=== PATIENT | male | born 1950 | race Caucasian/White ===

== ENCOUNTER 2020-08-09 07:46 | Emergency (ER) | payer MEDICARE, BC ==
[2020-08-09] MEDS ORDERED: Aspirin 81 MG Tab.Chew PO ONE (08:34)
--- NOTE | 2020-08-09 08:38 | EDM.PDOC ---
<OfficerAdy - Last Filed: 08/09/20 13:46> ED HPI GENERAL MEDICAL PROBLEM - General Chief Complaint: Chest Pain Stated Complaint: CHEST PAINS Time Seen by Provider: 08/09/20 08:24 Source of Information: Reports: Patient, RN Notes Reviewed History Limitations: Reports: No Limitations - History of Present Illness INITIAL COMMENTS - FREE TEXT/NARRATIVE: 69-year-old gentleman presents emergency department a complaint of chest pain chest discomfort, he states it came on yesterday it only occurs when he exerts himself if he stops he will have relief of his pain he describes it kind of is a burning sensation in the center of his chest no nausea vomiting no shortness of breath no diaphoresis. He does have an extensive cardiac history with stenting x2 last was about 8 years ago has not had a stress test for several years. Chest pain-free at this time. Stress test March 2019 - exercise portion nuclear med showed no ischemic or reversible areas chest Pain Score (Numeric/FACES): 3 - Related Data Allergies Allergy/AdvReac Type Severity Reaction Status Date / Time No Known Allergies Allergy Verified 08/09/20 08:02 Home Meds: Home Meds Aspirin [Halfprin] 81 mg PO DAILY 04/04/14 [History] Metoprolol Succinate [Toprol XL] 12.5 mg PO BID 04/04/14 [History] Multivitamins/Iron/Folic Acid [Cerovite Advanced Formula] 1 tab PO DAILY 04/04/14 [History] Niacin [Niaspan] 500 mg PO BEDTIME 04/04/14 [History] Nitroglycerin [Nitrostat] 0.4 mg SL ASDIRECTED PRN 04/04/14 [History] Cyclobenzaprine HCl 10 mg PO BEDTIME 03/26/19 [History] Naproxen 500 mg PO BID 03/26/19 [History] atorvaSTATin Calcium [Atorvastatin Calcium] 40 mg PO DAILY 03/26/19 [History] Cholecalciferol (Vitamin D3) [Vitamin D] 5,000 units PO DAILY 08/09/20 [History] Vitamin B Complex 1 cap PO DAILY 08/09/20 [History] Past Medical History Cardiovascular History: Reports: CAD, High Cholesterol, Hypertension, Stents Neurological History: Reports: Headaches, Chronic Social & Family History - Tobacco Use Tobacco Use Status *Q: Former Tobacco User Used Tobacco, but Quit: Yes Month/Year Tobacco Last Used: 03/1979 - Caffeine Use Caffeine Use: Reports: None - Recreational Drug Use Recreational Drug Use: No ED ROS GENERAL - Review of Systems Review Of Systems: See Below Constitutional: Reports: No Symptoms HEENT: Reports: No Symptoms Respiratory: Reports: No Symptoms Cardiovascular: Reports: Chest Pain. Denies: Dyspnea on Exertion GI/Abdominal: Reports: No Symptoms ED EXAM, GENERAL - Physical Exam Exam: See Below Exam Limited By: No Limitations General Appearance: Alert, WD/WN, No Apparent Distress Respiratory/Chest: No Respiratory Distress, Lungs Clear, Normal Breath Sounds, No Accessory Muscle Use, Chest Non-Tender Cardiovascular: Regular Rate, Rhythm, No Murmur GI/Abdominal: Soft, Non-Tender Extremities: No Pedal Edema #1 Interpretation EKG Date: 08/09/20 Time: 08:27 Rhythm: NSR [place]: Normal P-Wave: Present QRS: Normal ST-T: Normal QT: Normal Comparison: No Change #2 Interpretation EKG Date: 08/09/20 Time: 13:01 Rhythm: NSR Rate (Beats/Min): 56 [place]: Normal P-Wave: Present QRS: Normal ST-T: Normal QT: Normal Comparison: No Change Course - Re-Assessments/Exams Free Text/Narrative Re-Assessment/Exam: 08/09/20 13:46 Initially called and spoke with Dr. Cramer emergency room physician [facility] [phone] I would gladly accept the patient unfortunately they had no beds he would be #3 on the waiting list, call [facility] no beds at [phone] called [facility] no beds at 950 called [facility] no beds at [phone].. Called [facility] spoke with 1 call at [phone] he is currently #2 on the waiting list thus far he has been given a heparin bolus heparin drip Brilinta full dose aspirin he is remained chest pain-free no changes in EKGs will plan to repeat these in 6 hours Departure - Departure Disposition: DC/Tfer to Other 70 Clinical Impression: Non-STEMI (non-ST elevated myocardial infarction) Referrals: Jade Calderón PA-C [Primary Care Provider] - Forms: ED Department Discharge Care Plan Goals: Patient is to be transferred to [facility] for further evaluation by interventional cardiology. Accepted for transfer at 7:[address] Novoa of the emergency department. Sepsis Event Note (ED) - Evaluation Sepsis Screening Result: No Definite Risk <Cedrick Bergeron - Last Filed: 08/10/20 08:50> Course - Vital Signs Last Recorded V/S: Last Vital Signs Temp 98.2 F 08/09/20 16:03 Pulse 66 08/09/20 22:56 Resp 17 08/10/20 06:00 BP 120/72 08/10/20 06:00 Pulse Ox 98 08/10/20 06:00 - Orders/Labs/Meds Orders: Active Orders 24 hr Category Date Time Status Peripheral IV Insertion Adult [OM.PC] Stat Oth 08/09/20 09:29 Ordered EKG 12 Lead [EK] Stat Ther 08/09/20 08:35 Stop Req EKG 12 Lead [EK] Stat Ther 08/09/20 13:00 Ordered EKG 12 Lead [EK] Stat Ther 08/09/20 19:00 Ordered Labs: Laboratory Tests 08/09/20 08/09/20 08/09/20 Range/Units 08:43 08:43 09:57 WBC 4.8 (4.5-11.0) K/uL RBC 4.83 (4.30-5.90) M/uL Hgb 15.3 H (12.0-15.0) g/dL Hct 43.8 (40.0-54.0) % MCV 91 (80-98) fL MCH 32 H (27-31) pg MCHC 35 (32-36) % Plt Count 156 (150-400) K/uL Neut % (Auto) 64.3 (36-66) % Lymph % (Auto) 22.1 L (24-44) % [place] % (Auto) 11.1 H (2-6) % Eos % (Auto) 1.9 L (2-4) % Baso % (Auto) 0.6 (0-1) % PT 11.2 (9.5-12.0) sec INR 1.03 (0.80-1.20) APTT (27.0-36.0) sec Sodium 144 (140-148) mmol/L Potassium 4.7 (3.6-5.2) mmol/L Chloride 106 (100-108) mmol/L Carbon Dioxide 28 (21-32) mmol/L Anion Gap 9.8 (5.0-14.0) mmol/L BUN 16 (7-18) mg/dL Creatinine 0.9 (0.8-1.3) mg/dL Est Cr Clr Drug Dosing 65.49 mL/min Estimated GFR (MDRD) > 60 (>60) Glucose 93 (74-106) mg/dL Calcium 8.2 L (8.5-10.1) mg/dL Total Bilirubin 0.6 (0.2-1.0) mg/dL AST 28 (15-37) U/L ALT 33 (12-78) U/L Alkaline Phosphatase 73 (46-116) U/L Troponin I 0.598 H* (0.000-0.056) ng/mL Total Protein 6.3 L (6.4-8.2) g/dL Albumin 3.5 (3.4-5.0) g/dL Globulin 2.8 (2.3-3.5) g/dL Albumin/Globulin Ratio 1.2 (1.2-2.2) SARS CoV-2 RNA Rapid TRAVON 08/09/20 08/09/20 08/09/20 Range/Units 09:58 10:41 12:57 WBC (4.5-11.0) K/uL RBC (4.30-5.90) M/uL Hgb (12.0-15.0) g/dL Hct (40.0-54.0) % MCV (80-98) fL MCH (27-31) pg MCHC (32-36) % Plt Count (150-400) K/uL Neut % (Auto) (36-66) % Lymph % (Auto) (24-44) % [place] % (Auto) (2-6) % Eos % (Auto) (2-4) % Baso % (Auto) (0-1) % PT (9.5-12.0) sec INR (0.80-1.20) APTT 27.2 (27.0-36.0) sec Sodium (140-148) mmol/L Potassium (3.6-5.2) mmol/L Chloride (100-108) mmol/L Carbon Dioxide (21-32) mmol/L Anion Gap (5.0-14.0) mmol/L BUN (7-18) mg/dL Creatinine (0.8-1.3) mg/dL Est Cr Clr Drug Dosing mL/min Estimated GFR (MDRD) (>60) Glucose (74-106) mg/dL Calcium (8.5-10.1) mg/dL Total Bilirubin (0.2-1.0) mg/dL AST (15-37) U/L ALT (12-78) U/L Alkaline Phosphatase (46-116) U/L Troponin I 0.591 H* (0.000-0.056) ng/mL Total Protein (6.4-8.2) g/dL Albumin (3.4-5.0) g/dL Globulin (2.3-3.5) g/dL Albumin/Globulin Ratio (1.2-2.2) SARS CoV-2 RNA Rapid TRAVON Negative 08/09/20 08/09/20 08/09/20 Range/Units 16:15 16:15 18:58 WBC (4.5-11.0) K/uL RBC (4.30-5.90) M/uL Hgb (12.0-15.0) g/dL Hct (40.0-54.0) % MCV (80-98) fL MCH (27-31) pg MCHC (32-36) % Plt Count (150-400) K/uL Neut % (Auto) (36-66) % Lymph % (Auto) (24-44) % [place] % (Auto) (2-6) % Eos % (Auto) (2-4) % Baso % (Auto) (0-1) % PT 11.3 (9.5-12.0) sec INR 1.04 (0.80-1.20) APTT 54.4 H (27.0-36.0) sec Sodium (140-148) mmol/L Potassium (3.6-5.2) mmol/L Chloride (100-108) mmol/L Carbon Dioxide (21-32) mmol/L Anion Gap (5.0-14.0) mmol/L BUN (7-18) mg/dL Creatinine (0.8-1.3) mg/dL Est Cr Clr Drug Dosing mL/min Estimated GFR (MDRD) (>60) Glucose (74-106) mg/dL Calcium (8.5-10.1) mg/dL Total Bilirubin (0.2-1.0) mg/dL AST (15-37) U/L ALT (12-78) U/L Alkaline Phosphatase (46-116) U/L Troponin I 0.516 H* (0.000-0.056) ng/mL Total Protein (6.4-8.2) g/dL Albumin (3.4-5.0) g/dL Globulin (2.3-3.5) g/dL Albumin/Globulin Ratio (1.2-2.2) SARS CoV-2 RNA Rapid TRAVON 08/09/20 08/09/20 08/10/20 Range/Units 22:04 22:04 03:55 WBC (4.5-11.0) K/uL RBC (4.30-5.90) M/uL Hgb (12.0-15.0) g/dL Hct (40.0-54.0) % MCV (80-98) fL MCH (27-31) pg MCHC (32-36) % Plt Count (150-400) K/uL Neut % (Auto) (36-66) % Lymph % (Auto) (24-44) % [place] % (Auto) (2-6) % Eos % (Auto) (2-4) % Baso % (Auto) (0-1) % PT 11.4 (9.5-12.0) sec INR 1.05 (0.80-1.20) APTT 46.7 H 71.8 H (27.0-36.0) sec Sodium (140-148) mmol/L Potassium (3.6-5.2) mmol/L Chloride (100-108) mmol/L Carbon Dioxide (21-32) mmol/L Anion Gap (5.0-14.0) mmol/L BUN (7-18) mg/dL Creatinine (0.8-1.3) mg/dL Est Cr Clr Drug Dosing mL/min Estimated GFR (MDRD) (>60) Glucose (74-106) mg/dL Calcium (8.5-10.1) mg/dL Total Bilirubin (0.2-1.0) mg/dL AST (15-37) U/L ALT (12-78) U/L Alkaline Phosphatase (46-116) U/L Troponin I (0.000-0.056) ng/mL Total Protein (6.4-8.2) g/dL Albumin (3.4-5.0) g/dL Globulin (2.3-3.5) g/dL Albumin/Globulin Ratio (1.2-2.2) SARS CoV-2 RNA Rapid TRAVON Meds: Medications Discontinued Medications Generic Name Dose Route Start Last Admin Trade Name Freq PRN Reason Stop Dose Admin Aspirin 324 mg 08/09/20 08:34 08/09/20 08:39 Aspirin 81 Mg Tab.Chew PO 08/09/20 08:35 Not Given ONETIME ONE Heparin Sodium (Porcine) 4,000 units 08/09/20 09:29 08/09/20 09:51 Heparin Sodium 5,000 Units/Ml Vial IVPUSH 08/09/20 09:30 4,000 units ONETIME ONE Administration Heparin Sodium (Porcine) 1,000 units 08/09/20 22:50 08/09/20 22:58 Heparin Sodium 5,000 Units/Ml Vial IVPUSH 08/09/20 22:51 1,000 units .BOLUS ONE Administration Heparin Sodium/Dextrose 25,000 units in 500 mls @ 18.507 mls/hr 08/09/20 09:30 08/10/20 04:19 Heparin 25,000 Units In D5w 500 Ml IV 12 units/kg/hr TITRATE JEET 18.507 mls/hr Titration Protocol 12 UNITS/KG/HR Heparin Sodium/Dextrose 25,000 units in 500 mls @ 18.507 mls/hr 08/10/20 08:15 08/10/20 08:15 Heparin 25,000 Units In D5w 500 Ml IV 12 units/kg/hr TITRATE JEET 18.507 mls/hr Administration Protocol 12 UNITS/KG/HR Nitroglycerin 0.4 mg 08/09/20 09:29 Nitroglycerin 0.4 Mg Tab.Sl SL 08/10/20 09:30 Q5M PRN Chest Pain Sodium Chloride 10 ml 08/09/20 09:29 08/09/20 09:52 Sodium Chloride 0.9% 10 Ml Syringe FLUSH 10 ml ASDIRECTED PRN Administration Keep Vein Open Ticagrelor 180 mg 08/09/20 09:29 08/09/20 09:43 Ticagrelor 90 Mg Tab PO 08/09/20 09:30 180 mg ONETIME ONE Administration Departure - Departure Time of Disposition: 08:40 Reason for Transfer *Q: Primary PCI Indicated Sepsis Event Note (ED) - Focused Exam Vital Signs: Vital Signs Pulse Resp BP Pulse Ox 08/10/20 06:00 17 120/72 98 08/10/20 05:00 18 129/73 95 08/10/20 04:00 16 116/72 96 08/10/20 03:00 17 114/73 96 08/10/20 02:00 19 108/64 96 08/10/20 01:00 16 114/56 L 96 08/09/20 22:56 66 21 H 111/67 96 08/09/20 21:07 68 21 H 112/59 L 94 L
--- NOTE | 2020-08-09 09:06 | CR ---
CHEST: 2 view CLINICAL HISTORY:Chest pain COMPARISON:2014 FINDINGS: The heart size, pulmonary vascularity and hilar structures are normal. No infiltrate effusion or pneumothorax is seen. IMPRESSION: No acute cardiopulmonary process.
[2020-08-09] MEDS ORDERED: Sodium Chloride 0.9% 10 ML Syringe FLUSH PRN (09:29)
[2020-08-09] MEDS ORDERED: Heparin Sodium 5,000 Units/ML Vial IVPUSH ONE ×2 (09:29→22:50)
[2020-08-09] MEDS ORDERED: Ticagrelor 90 MG Tab PO ONE (09:29)
[2020-08-09] MEDS ORDERED: Nitroglycerin 0.4 MG Tab.SL SL PRN (09:29)
[2020-08-09] MEDS ORDERED: Heparin Sodium/D5W 25,000 UNITS/500 ML BAG IV SCH (09:30)
[2020-08-09 22:57] VITALS: PULSE 66
[2020-08-10 06:04] VITALS: BP 120/72
[2020-08-10] MEDS ORDERED: Heparin Sodium/D5W 25,000 UNITS/500 ML BAG IV SCH (08:15)
== END 2020-08-10 08:25 | disposition other institution (70) ==
LOC: JP.ED 07:46
DX: I21.4 Non-ST elevation (NSTEMI) myocardial infarction (principal); I25.10 Atherosclerotic heart disease of native coronary artery without angina pectoris; E78.00 Pure hypercholesterolemia, unspecified; I10 Essential (primary) hypertension; Z95.5 Presence of coronary angioplasty implant and graft; Z87.891 Personal history of nicotine dependence; Z79.82 Long term (current) use of aspirin; Z79.899 Other long term (current) drug therapy; Z20.822 Contact with and (suspected) exposure to COVID-19
CPT/HCPCS: 36415; 71046; 80053; 84484; 85025; 85610; 85730; 93005; 96365; 96366; 99285; A9270; J1644; U0002

== ENCOUNTER 2021-01-04 05:51 | Emergency (ER) | payer MEDICARE, BC ==
[2021-01-04] MEDS ORDERED: Morphine 2 MG/ML SYRINGE IVPUSH PRN (06:21)
[2021-01-04] MEDS ORDERED: Aspirin 81 MG Tab.Chew PO ONE (06:21)
[2021-01-04] MEDS ORDERED: Nitroglycerin 0.4 MG Tab.SL SL PRN (06:21)
[2021-01-04] MEDS ORDERED: Morphine 2 MG/ML SYRINGE IM ONE (06:26)
--- NOTE | 2021-01-04 07:25 | EDM.PDOC ---
ED HPI GENERAL MEDICAL PROBLEM - General Chief Complaint: Chest Pain Stated Complaint: CHEST PRESSURE Time Seen by Provider: 01/04/21 06:17 Source of Information: Reports: Patient, Old Records History Limitations: Reports: No Limitations - History of Present Illness INITIAL COMMENTS - FREE TEXT/NARRATIVE: 70 yo male with a pHx of CAD presents with mild L chest pain/pressure for the past 2 d that seems worse in the AM. No associated sx's like nausea, SOB, or diaphoresis. Has NTG, but did not take any. 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 Is here with his . Says "he just doesn't feel right". Onset: Gradual Onset Date: 01/02/21 Duration: Day(s): (2), Waxing/Waning Location: Reports: Chest, Generalized Quality: Reports: Pressure Severity: Mild Improves with: Reports: Other (? 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 Denies: Nitroglycerin chest Pain Score (Numeric/FACES): 2 - Related Data Allergies Allergy/AdvReac Type Severity Reaction Status Date / Time No Known Allergies Allergy Verified 01/04/21 05:59 Home Meds: Home Meds Aspirin [Halfprin] 81 mg PO DAILY 04/04/14 [History] Metoprolol Succinate [Toprol XL] 12.5 mg PO BID 04/04/14 [History] Multivitamins/Iron/Folic Acid [Cerovite Advanced Formula] 1 tab PO DAILY 04/04/14 [History] Nitroglycerin [Nitrostat] 0.4 mg SL ASDIRECTED PRN 04/04/14 [History] Cyclobenzaprine HCl 10 mg PO BEDTIME 03/26/19 [History] atorvaSTATin Calcium [Atorvastatin Calcium] 40 mg PO DAILY 03/26/19 [History] Cholecalciferol (Vitamin D3) [Vitamin D] 5,000 units PO DAILY 08/09/20 [History] Vitamin B Complex 1 cap PO DAILY 08/09/20 [History] Ticagrelor [Brilinta] 90 mg PO BID 01/04/21 [History] Past Medical History HEENT History: Reports: Hard of Hearing, Other (See Below) Other HEENT History: bilateral hearing aids Cardiovascular History: Reports: CAD, High Cholesterol, Hypertension, Stents Genitourinary History: Reports: Renal Calculus Neurological History: Reports: Headaches, Chronic Dermatologic History: Reports: Other (See Below) Other Dermatologic History: pigment loss bilateral arms - Infectious Disease History Infectious Disease History: Reports: Chicken Pox, Novel Coronavirus - Past Surgical History Cardiovascular Surgical History: Reports: Coronary Artery Stent Male Surgical History: Reports: Kidney Stone Extraction Social & Family History - Tobacco Use Tobacco Use Status *Q: Never Tobacco User - Caffeine Use Caffeine Use: Reports: None ED ROS GENERAL - Review of Systems Review Of Systems: See Below Constitutional: Reports: Other (" just doesn't feel right") HEENT: Reports: No Symptoms Respiratory: Reports: No Symptoms. Denies: Shortness of Breath, Pleuritic Chest Pain, Cough Cardiovascular: Reports: Chest Pain. Denies: Dyspnea on Exertion GI/Abdominal: Reports: No Symptoms. Denies: Nausea : Reports: No Symptoms Musculoskeletal: Reports: No Symptoms Skin: Reports: No Symptoms Neurological: Reports: No Symptoms ED EXAM, GENERAL - Physical Exam Exam: See Below Exam Limited By: No Limitations General Appearance: Alert, WD/WN, No Apparent Distress Eye Exam: Bilateral Eye: Normal Inspection Ears: Normal External Exam, Normal Canal, Hearing Grossly Normal, Normal TMs Ear Exam: Bilateral Ear: Auricle Normal, Canal Normal Nose: Normal Inspection, No Blood Throat/Mouth: Normal Inspection, Normal Lips, Normal Oropharynx, Normal Voice, No Airway Compromise Head: Atraumatic, Normocephalic Neck: Normal Inspection Respiratory/Chest: No Respiratory Distress, Lungs Clear, Normal Breath Sounds, No Accessory Muscle Use, Chest Non-Tender Cardiovascular: Regular Rate, Rhythm, No Edema GI/Abdominal: Normal Bowel Sounds, Soft, Non-Tender, No Distention. No: Distended Back Exam: Normal Inspection. No: CVA Tenderness (R), CVA Tenderness (L) Extremities: Normal Inspection, Normal Range of Motion, Non-Tender, No Pedal Edema Neurological: Alert, Oriented, CN II-XII Intact, Normal Cognition, No Motor/Sensory Deficits Psychiatric: Normal Affect, Normal Mood Skin Exam: Warm, Dry, Intact, Normal Color, No Rash #1 Interpretation EKG Date: 01/04/21 Time: 05:55 Rhythm: NSR Rate (Beats/Min): 56 [place]: Normal P-Wave: Present QRS: Normal ST-T: Normal QT: Normal Comparison: No Change Course - Vital Signs Last Recorded V/S: Last Vital Signs Temp 36.4 C 01/04/21 06:07 Pulse 64 01/04/21 06:35 Resp 24 H 01/04/21 06:35 BP 141/71 H 01/04/21 06:35 Pulse Ox 96 01/04/21 06:35 - Orders/Labs/Meds Orders: Active Orders 24 hr Category Date Time Status Cardiac Monitoring [RC] .As Directed Care 01/04/21 06:21 Active Chest 1V Frontal [CR] Stat Exams 01/04/21 06:22 Taken Nitroglycerin [Nitrostat] Med 01/04/21 06:21 Active 0.4 mg SL Q5M PRN EKG 12 Lead [EK] Stat Ther 01/04/21 06:22 Ordered Medication Orders Nitroglycerin (Nitroglycerin 0.4 Mg Tab.Sl) 0.4 mg SL Q5M PRN PRN Reason: Chest Pain Stop: 01/05/21 06:22 Labs: Laboratory Tests 01/04/21 01/04/21 Range/Units 06:30 06:30 WBC 4.8 (4.5-11.0) K/uL RBC 4.88 (4.30-5.90) M/uL Hgb 15.4 H (12.0-15.0) g/dL Hct 43.5 (40.0-54.0) % MCV 89 (80-98) fL MCH 32 H (27-31) pg MCHC 35 (32-36) % Plt Count 153 (150-400) K/uL Neut % (Auto) 61.7 (36-66) % Lymph % (Auto) 24.0 (24-44) % [place] % (Auto) 11.2 H (2-6) % Eos % (Auto) 2.7 (2-4) % Baso % (Auto) 0.4 (0-1) % Sodium 139 L (140-148) mmol/L Potassium 4.2 (3.6-5.2) mmol/L Chloride 105 (100-108) mmol/L Carbon Dioxide 26 (21-32) mmol/L Anion Gap 12.2 (5.0-14.0) mmol/L BUN 14 (7-18) mg/dL Creatinine 0.9 (0.8-1.3) mg/dL Est Cr Clr Drug Dosing 66.95 mL/min Estimated GFR (MDRD) > 60 (>60) Glucose 96 (74-106) mg/dL Calcium 8.3 L (8.5-10.1) mg/dL Total Bilirubin 0.7 (0.2-1.0) mg/dL AST 19 (15-37) U/L ALT 47 (12-78) U/L Alkaline Phosphatase 71 (46-116) U/L Troponin I < 0.017 (0.000-0.056) ng/mL Total Protein 6.2 L (6.4-8.2) g/dL Albumin 3.4 (3.4-5.0) g/dL Globulin 2.8 (2.3-3.5) g/dL Albumin/Globulin Ratio 1.2 (1.2-2.2) Meds: Medications Generic Name Dose Route Start Last Admin Trade Name Freq PRN Reason Stop Dose Admin Nitroglycerin 0.4 mg 01/04/21 06:21 Nitroglycerin 0.4 Mg Tab.Sl SL 01/05/21 06:22 Q5M PRN Chest Pain Discontinued Medications Generic Name Dose Route Start Last Admin Trade Name Freq PRN Reason Stop Dose Admin Aspirin 324 mg 01/04/21 06:21 01/04/21 06:30 Aspirin 81 Mg Tab.Chew PO 01/04/21 06:22 324 mg ONETIME ONE Administration Morphine Sulfate 2 mg 01/04/21 06:21 Morphine 2 Mg/Ml Syringe IVPUSH 01/05/21 06:21 Q10M PRN Chest Pain Morphine Sulfate 2 mg 01/04/21 06:26 Morphine 2 Mg/Ml Syringe IM 01/04/21 06:27 ONETIME ONE Departure - Departure Time of Disposition: 07:33 Disposition: Home, Self-Care 01 Condition: Good Clinical Impression: Nonspecific chest pain Instructions: Nonspecific Chest Pain, Adult, [id number] Referrals: PCP,None [Primary Care Provider] - Forms: ED Department Discharge Additional Instructions: Continue your usual medications. Your Chest X-ray, heart enzyme, vital signs and physical exam did not reveal any obvious cause for your chest pain. We recommend you follow up as soon as reasonable with your primary care provider in the clinic. Return if worse. Sepsis Event Note (ED) - Evaluation Sepsis Screening Result: No Definite Risk - Focused Exam Vital Signs: Vital Signs Temp Pulse Resp BP Pulse Ox 01/04/21 06:35 64 24 H 141/71 H 96 01/04/21 06:07 36.4 C 57 L 11 L 137/77 98 01/04/21 06:04 36.4 C 57 L 11 L 137/77 98
[2021-01-04 07:39] VITALS: BP 131/56; PULSE 57
--- NOTE | 2021-01-04 09:13 | CR ---
CHEST: Portable 01/04/2021 at 6:45 AM CLINICAL HISTORY:Chest pain COMPARISON:July 2020 FINDINGS: The heart size, pulmonary vascularity and hilar structures are normal. No infiltrate effusion or pneumothorax is seen. IMPRESSION: No acute cardiopulmonary process.
== END 2021-01-04 07:51 | disposition home or self-care (01) ==
LOC: JP.ED 05:51
DX: R07.89 Other chest pain (principal); I25.10 Atherosclerotic heart disease of native coronary artery without angina pectoris; E78.00 Pure hypercholesterolemia, unspecified; I10 Essential (primary) hypertension; Z95.5 Presence of coronary angioplasty implant and graft; Z79.82 Long term (current) use of aspirin; Z79.899 Other long term (current) drug therapy; Z86.16 Personal history of COVID-19
CPT/HCPCS: 36415; 71045; 80053; 84484; 85025; 93005; 99285; A9270